=== PATIENT | female | born 1965 | race Hispanic/Latino ===

== ENCOUNTER 2024-03-12 19:04 | Emergency (ER) | payer SELFPAY ==
[~2024-03-12] VITALS: Ht 157.5 cm; Wt 56.7 kg
[2024-03-12 19:30] VITALS: PULSE 86; RESP 16; TEMP 98.1; O2SAT 100
[2024-03-12] MEDS: TETANUS/DIPHTHERIA TOX ADULT 0.5 ML SYR IM ONE (20:04)
[2024-03-12] MEDS: LIDOCAINE HCL 1% LOCAL INJ 20 ML VIAL INJ ONE (20:34)
[2024-03-12] MEDS ORDERED: NEOMYCIN/POLYMYX/BACITR OINT 0.9 GM PKT TOP ONE (20:45)
== END 2024-03-12 20:41 | disposition home or self-care (01) ==
LOC: ER 19:10
DX: S01.81XA Laceration without foreign body of other part of head, initial encounter (principal); R51.9 Headache, unspecified; W01.198A Fall on same level from slipping, tripping and stumbling with subsequent striking against other object, initial encounter; Y93.01 Activity, walking, marching and hiking; Y92.89 Other specified places as the place of occurrence of the external cause; R73.03 Prediabetes
CPT/HCPCS: 12011; 90471; 90714; 99283; J2001